=== PATIENT | male | born 1965 | race Caucasian/White ===

== ENCOUNTER → 2016-06-21 | Outpatient (CLI) | payer MEDICARE, BC, OTHER ==
[~2016-06-21] MED LIST: ACCUPRIL PO; ASPIRIN EC81 M1 PO; ASPIRIN PO; CARDURA PO; CELLCEPT; CELLCEPT500 MG PO; DEPAKOTE PO; FOSAMAX PO; KEPPRA500 M1 PO; KEPPRA500 M2 PO; KEPPRA750 MG PO; LASIX PO; LASIX20 MG PO; LIPITOR PO; METFORMIN HCL500 M1 PO; MEVACOR PO; OLANZAPINE5 MG PO; OYSTER CALCIUM500 MG PO; PREDNISONE PO; RAPAMUNE1 MG PO; SANDIMMUNE PO; SEROQUEL PO; SEROQUEL400 MG PO; ZOLOFT PO; ZOLOFT100 MG PO
--- NOTE | ~2016-06-21 | CT57 ---
[facility] A Service of [facility] RADIOLOGY TEXT RESULTS PATIENT: ANG CHAUHAN LOCATION: [facility] : 63 UNIT #: [id number] AGE: [address]: Johnnie Johnson MD SEX: M ORDER DR: [id number] [facility] [address] [place], [place] [address] [id number] O MR#: [id number] [facility] #: [id number] NAME: ANG CHAUHAN : 1965 SEX: M STUDY DATE/TIME: 06/21/2016 9:40 UNIT: [facility] ROOM: STUDY DESCRIPTION: CT Chest Wo Cont Attending Physician: Johnnie Johnson M.D. Referring Physician: Johnnie Johnson M.D. Ordering Physician: Johnnie Johnson M.D. Primary Care Physician: Radha Herrmann M.D. MEDICAL IMAGING REPORT This report is preliminary unless electronic signature is present EXAM CT chest without contrast, 06/21/2016 HISTORY Thoracic aortic aneurysm followup. No current complaints. History of kidney transplant. Splenectomy. Hypertension and diabetes. COMPARISON CT chest and abdomen without contrast 06/21/2015 and 11/24/2013. PROCEDURE 5.0 mm noncontrast axial images through the chest. Sagittal and coronal reformatted images were obtained. TECHNIQUE This CT exam was performed with one or more of the following radiation dose reduction techniques: automatic exposure control, adjustment of mA and/or kV according to patient size, and iterative reconstruction. FINDINGS Aortic root at the sinuses of Valsalva measures 4.1 cm in the coronal plane, not thought to be significantly changed when compared to 06/21/2015 where it measured 4.2 cm. The mid ascending thoracic aorta caliber is within normal limits, measuring 3.4 cm, similar to prior study. Transverse aorta measures 2.8 cm, mid descending thoracic aorta 2.4 cm, upper abdominal aorta 2.3 cm, all within normal limits, and not appreciably changed from prior. There is stable mild cardiac enlargement. No mediastinal or hilar adenopathy. No pericardial effusion or pleural effusion. Chronic-appearing scarring within the right middle lobe and lingula and within the bases. No acute airspace disease. Prominence of pleural fat in the posterior mid to lower lung zones. Prominence of anterior STS. [facility] A Service of [facility] RADIOLOGY TEXT RESULTS PATIENT: ANG CHAUHAN LOCATION: [facility] : 63 UNIT #: [id number] AGE: [address]: Johnnie Johnson MD SEX: M ORDER DR: mediastinal fat, unchanged. Bilateral kidneys are severely atrophic with what appear to be either fat density angiomyolipomas or intervening areas of fat in regions of parenchymal scarring. These findings are not thought to be significantly changed when compared to the more remote CT chest from 11/21/2012. Extensive coarse and dystrophic type calcifications are seen within both kidneys. Nonspecific low-density lesions in the liver are thought to be stable, statistically representing benign finding such as cysts. Remainder of included upper abdominal organs are within normal limits. There is an old left first rib fracture. IMPRESSION 1. Stable borderline aneurysmal dilation of the aortic root at the sinuses of Valsalva, 4.0 cm. Normal caliber of the ascending, transverse and descending thoracic aorta and upper abdominal aorta. 2. No acute chest findings. 3. Advanced bilateral renal atrophy. 4. Nonspecific low-density hepatic lesions favored to represent cysts, unchanged. 5. Stable mild cardiac enlargement. 6. Old left rib fracture. 7. Stable chronic bilateral midlung scarring. Dictated by... Tamy Tobar M.D. THIS IS AN ELECTRONICALLY VERIFIED REPORT Tamy Tobar M.D. at 06/22/2016 7:04 AM LEAH/herson TD: 06/21/2016 14:40 JOB #: [id number] MEDICAL IMAGING REPORT Page 1 of 1 COPY
== END | disposition home or self-care (01) ==
LOC: CCAT 09:26
DX: I71.2 Thoracic aortic aneurysm, without rupture (principal); N26.1 Atrophy of kidney (terminal); K76.9 Liver disease, unspecified; J98.4 Other disorders of lung; Z87.81 Personal history of (healed) traumatic fracture
CPT/HCPCS: 71250

== ENCOUNTER → 2016-07-06 | Day surgery (SDC) | payer MEDICARE, BC ==
--- NOTE | ~2016-07-06 | OR ---
Unit #: [id number] #: [id number] Patient: ANG CHAUHAN [id number] [address] [place], [place] [address] [id number] O MR#: [id number] NAME: ANG CHAUHAN ROOM: Date of Procedure: 07/06/2016 Admission Date: 07/06/2016 Surgeon: Tian Barajas M.D. : 1965 Attending Physician: Tian Barajas M.D. Primary Care Physician: Radha Herrmann M.D. OPERATIVE REPORT PREOPERATIVE DIAGNOSIS Screening colonoscopy. POSTOPERATIVE DIAGNOSIS Screening colonoscopy. PROCEDURES PERFORMED 1. Colonoscopy to cecum. 2. Polypectomy with electrocautery snare at 50 cm. ANESTHESIA Monitored anesthesia care. FINDINGS The patient was found to have some scattered sigmoid diverticula. A 4 mm polyp was excised at 50 cm with electrocautery snare with good hemostasis. SPECIMENS Sent to pathology. COMPLICATIONS None apparent. CONDITION The patient tolerated the procedure well. INDICATIONS FOR PROCEDURE The patient is a 50-year-old white male, who presents at this time for screening colonoscopy. DESCRIPTION OF PROCEDURE After obtaining informed consent, the patient was brought to the endoscopy suite and after adequate monitored anesthesia care, had the colonoscope placed through the anus and slowly advanced to the level of the cecum without difficulty with the lumen always in view. The cecum was normal as was the ileocecal valve. The ascending colon was normal as was the hepatic flexure, transverse colon, splenic flexure, and descending colon. The sigmoid colon had a few scattered diverticula present. A small 3 to 4 mm polyp was found at 50 cm and was completely excised with electrocautery snare, retrieved with mucus trap, and sent to pathology. There was good hemostasis. The remaining portion of the sigmoid colon, rectosigmoid, and rectum were all within normal limits. On retroflexing in the rectum to Unit #: [id number] #: [id number] Patient: ANG CHAUHAN the anorectal junction, the patient was found to have no significant abnormality. The scope was removed without difficulty. The patient tolerated the procedure well, and went from the endoscopy suite to recovery area in stable condition. RECOMMENDATIONS High-fiber diet, lots of liquids, tucks or wipes p.r.n. Diverticular sheet given. Call Sunday for pathology. Dictated by... Amie Pacheco/melany TD: 07/07/2016 05:53 JOB #: [id number] Darion Saeed M.D. [facility] OPERATIVE REPORT Page 1 of 1 X Tian Barajas MD X PROCEDURE OPERATIVE NOTE
== END | disposition home or self-care (01) ==
LOC: COPS 09:02
DX: Z12.11 Encounter for screening for malignant neoplasm of colon (principal); D12.6 Benign neoplasm of colon, unspecified; K57.30 Diverticulosis of large intestine without perforation or abscess without bleeding; E11.9 Type 2 diabetes mellitus without complications; E78.5 Hyperlipidemia, unspecified; F41.9 Anxiety disorder, unspecified; F32.9 Major depressive disorder, single episode, unspecified; G40.909 Epilepsy, unspecified, not intractable, without status epilepticus; Z79.82 Long term (current) use of aspirin; Z79.84 Long term (current) use of oral hypoglycemic drugs; Z79.899 Other long term (current) drug therapy; Z94.0 Kidney transplant status; Z90.81 Acquired absence of spleen; Z98.890 Other specified postprocedural states
CPT/HCPCS: 82947; 88305; J2250